=== PATIENT | male | born 1960 | race Caucasian/White ===

== ENCOUNTER 2025-05-10 21:11 | Emergency (ER) | payer OTHER, MEDICARE ==
[~2025-05-10] VITALS: Ht 193 cm; Wt 86.9 kg
[2025-05-10 21:15] VITALS: BP 126/78; PULSE 123; TEMP 97.8; O2SAT 100
--- NOTE | 2025-05-10 22:09 | Physician Documentation ---
History of Present Illness ~ Chief Complaint: Urinary Retention Stated Complaint: CANT GO TO THE BATHROOM Time Seen by MD: 21:34 OK to notify your PCP?: Yes Source: patient Mode of Arrival: POV Exam Limitations: no limitations HPI This is a 64-year-old male who comes in complaining of difficulty urinating. The patient has a history of BPH that has well as chronic back pain. He states that has happened in the past with the back pain gets bad he tenses up and can not urinate. He is able to ambulate. He denies pain radiating down the legs. He denies saddle paresthesias or loss of bowel control. He says that has times he has required a catheter however recently he ran out of his pain medication and believes the buildup of pain secondary to not having his medications that has caused his bowels of difficulty urinating. Last time he urinated was 4 hours ago. Medication Reconciliation Allergies: Coded Allergies: No Known Allergies (Unverified , 05/10/25) Physical Exam Vital Signs: Temperature: 97.8, Heart Rate: 123, Respiratory Rate: 16, BP: 126/78, Pulse Oximetry: 100, Weight: 86.900 Oxygen Flow Rate: 0 General Appearance: alert, WD/WN, mild distress Respiratory: no respiratory distress, respiratory distress Progress Results/Orders Results/Orders Completed Orders - MARTHA SMYTH Hydrocodone/Apap 10/325 ([place] 10/325mg (05/10/25 22:00) Medications Received in ER Medications (Trade) Dose Ordered Sig/Roro Route PRN Reason Start Time Stop Time Status Last Admin Dose Admin ([place] 10/325mg tab) 2 tab ONCE ONCE PO 05/10/25 22:00 05/10/25 22:01 DC 05/10/25 22:52 2 TAB Vital Signs 05/10/25 05/10/25 21:15 22:52 Temp 97.8 Pulse 123 Resp 16 18 B/P (MAP) 126/78 Pulse Ox 100 O2 Flow Rate 0 Medical Decision Making Additional information obtaine: N/A Findings After receiving the pain medication which was two tabs of 10/325 mg [place] the patient was able to fill up a urinalysis and states he feels much better. I am going to send the patient home with a small amount of [place] until he is able to get the prescription that has primary care physician sent to the pharmacy yesterday. I instructed him to return if he has any worsening or concerning symptoms. Urinary Diff Dx:Considerations: Include: AAA, Aortic dissection, Appendicitis, Appendicitis train, Bowel obstruction, Bladder outlet obstruc., Cholelithiasis, Choleangitis, Cholecystitis, DJD, Epididymitis, Hepatitis, HNP, Impaction, Musculoskeletal pain, Pancreatitis, Postoperative Comp., Prostatitis, Pyelon ephritis, Renal failure, Renal infarction, Strain, Urolithiasis, Urinary Obstruction, Urethritis, Urinary retention, UTI, Other Genital Diff Dx:Considerations: Include: Abscess, Balanitis, Balanoposthitis, Cellulitis, Epididymitis, Entrapment injury, Mary's gangrene, Foreign body, Facture penis, Hydrocele, Inguinal hernia, Post-op Complication, Paraphimosis, Prostatitis, Priapism, Syphilis, Testicular torsion, Torsion-epididymis, Torsion-appendiceal, Urinary retention, Urethritis, Urethritis-chlamydial, Urethritis-gonococcal, UTI, Other Additional Comment Urinary retention. BPH. Back pain. Doubt cauda equina syndrome Departure Disposition: HOME / SELF CARE / HOMELESS Impression: Primary Impression: Urinary retention Condition: Stable Discharge Instructions: Acute Urinary Retention, Male Additional Instructions: Take the medication as prescribed. Follow up with the primary care physician for recheck in the next one or two days and return to the ER for any worsening or concerning symptoms. Referrals: NO PRIMARY CARE PROVIDER (PCP) Prescriptions Baclofen (Baclofen) 20 Mg Tablet 1 TAB PO Q8H for Musculoskeletal pain, #20 TAB 0 Refills Prov: MARTHA SMYTH 05/11/25 Hydrocodone Bit/Acetaminophen (Hydrocodone-Apap 10-325 Tablet) 10mg/325mg T ablet 1 TABLET PO Q6H PRN for moderate or severe pain 4-10, #10 TABLET Prov: MARTHA SMYTH 05/11/25 Signature Scribe Signature: No scribe Attestation: The note accurately reflects work and decisions made by me.Martha BATISTA 05/11/25 00:16 MARTHA SMYTH May 10, 2025 22:08
[2025-05-10 22:52] VITALS: RESP 18
[2025-05-10] MEDS: HYDROcodone/acetaminophen 10/325mg tab PO ONE (22:52)
[2025-05-11] MEDS ORDERED: HYDR-3973 PO (00:15)
[2025-05-11] MEDS ORDERED: BACL20TA PO (00:15)
== END 2025-05-11 00:39 | disposition home or self-care (01) ==
LOC: ER 21:13
DX: R33.9 Retention of urine, unspecified (principal)
CPT/HCPCS: 99283

== ENCOUNTER 2025-05-14 19:07 | Emergency (ER) | payer OTHER, MEDICARE ==
[~2025-05-14] VITALS: Ht 198.1 cm; Wt 84.1 kg
[~2025-05-14 19:07] MED LIST: BACL20TA PO; HYDR-3973 PO
--- NOTE | 2025-05-14 19:37 | Physician Documentation ---
HPI ~ General Chief Complaint: Tooth Problem Stated Complaint: ABCESS TOOTH/ BACK PAIN Time Seen by MD: 19:36 OK to notify your PCP?: Yes Source: patient Mode of Arrival: POV Exam Limitations: no limitations History of Present Illness HPI Comment Presents for worsening right-sided lower dental pain. He reports he does not have an upcoming dental appointment. He is also complaining of having some chronic back pain. He currently has a pain contract and takes Hume 10/325 at home but is unable to pepper picker the prescription for the next couple of days so he has been unable to take it as frequently and believes his pain may have flared up. Since the dental pain is an acute issue, he is wondering if he can have Hume sent to his pharmacy that he can take instead of the 02/18/2025 that can help him with his tooth pain. Last dose of Hume 10 was yesterday. Denies any fevers, drainage from the tooth, nausea, vomiting or diarrhea. Medication Reconciliation Allergies: Coded Allergies: No Known Allergies (Unverified , 05/10/25) Scheduled Baclofen (Baclofen), 1 TAB PO Q8H Benzocaine* (Anbesol*), 1 APPLIC TP Q2H Clindamycin HCl (Clindamycin HCl), 1 CAP PO Q8H Scheduled PRN Hydrocodone Bit/Acetaminophen 5/325 MG (Hume 5/325 MG), 1 TAB PO TID PRN PRN for pain Hydrocodone Bit/Acetaminophen (Hydrocodone-Apap 10-325 Tablet), 1 TABLET PO Q6H PRN for moderate or severe pain 4-10 Review of Systems All Other Systems at this time: Reviewed and Negative Physical Exam Vital Signs: RN Vital Signs have been reviewed: Yes, Temperature: 98.0, Heart Rate: 98, Respiratory Rate: 18, BP: 136/93, Pulse Oximetry: 98, Weight: 84.090 Oxygen Flow Rate: 0 Pulse Oximetry Reflects: adequate oxygenation Physical Exam General: Alert, no distress. HEENT: No injection, moist mucous membranes. Slight facial swelling and tenderness to palpation of right lower jaw near tooth #31. There is erythema and pain at the gumline. No trismus Neck: Full range of motion. No cervical lymphadenopathy Respiratory: No respiratory distress, equal chest rise and fall. Chest: No accessory muscle use. Cardiovascular: Regular rate and rhythm. Gastrointestinal: Nondistended. Extremities: Normal range of motion, no deformity. Neurologic: Oriented x4. Psychiatric: Normal mood and affect. Skin: Normal color, warm and dry. Progress Results/Orders Reviewed/noted all lab results: Yes Results/Orders Completed Orders - CHEY MALHOTRA BATTERY STARTER Hydrocodone/Apap 10/325 (Hume 10/325mg (05/14/25 20:50) Clindamycin Capsule (Cleocin Capsule) (05/14/25 20:50) Medications Received in ER Medications (Trade) Dose Ordered Sig/Roro Route PRN Reason Start Time Stop Time Status Last Admin Dose Admin (Hume 10/325mg tab) 1 tab ONCE ONCE PO 05/14/25 20:50 05/14/25 21:01 DC 05/14/25 21:05 1 TAB (Cleocin capsule) 300 mg ONCE ONCE PO 05/14/25 20:50 05/14/25 21:01 DC 05/14/25 21:04 300 MG Vital Signs 05/14/25 05/14/25 05/14/25 19:27 21:05 21:07 Temp 98.0 98.0 Pulse 98 79 Resp 18 18 16 B/P (MAP) 136/93 133/75 Pulse Ox 98 97 O2 Flow Rate 0 Medical Decision Making Additional information obtaine: old records Findings Patient reports having dental infection if his lower right molar. This tooth on exam is in poor condition with multiple dental caries and there is erythema and redness at the gumline. He is having some edema into his right lower cheek as well. Prescribed clindamycin, benzocaine and Hume 5s. We discussed with the Hume 5s may not be filled as he is on a pain contract but seen this is is a different medication and for an acute issue such as his dental pain, the pharmacy may or may not fill this. Dose of Hume administered in the department for pain relief. Offered to do a dental nerve block instead but patient declined. Differential Dx:Considerations: Include: Alveolar fracture, Facial Cellulitis, Periapical abscess, Peridontal abscess, Post-extraction bleeding, Trigeminal neuralgia, Tooth subluxation Departure Disposition: HOME / SELF CARE / HOMELESS Impression: Primary Impression: Dental abscess Condition: Stable Discharge Instructions: Dental Abscess Additional Instructions: Please follow up with your dentist to have this tooth pulled. Return back here for any new or worsening symptoms. Take all antibiotics as prescribed. Referrals: NO PRIMARY CARE PROVIDER (PCP) Prescriptions Hydrocodone Bit/Acetaminophen 5/325 MG (Hume 5/325 MG) 5 Mg/325 Mg Tablet 1 TAB PO TID PRN PRN for pain for 5 Days, #15 TAB Prov: CHEY MALHOTRA 05/14/25 Benzocaine* (Anbesol*) 12 Ml Bottle 1 APPLIC TP Q2H for 3 Days, #1 EACH Prov: CHEY MALHOTRA 05/14/25 Clindamycin HCl (Clindamycin HCl) 300 Mg Capsule 1 CAP PO Q8H for 10 Days, #30 CAP Prov: CHEY MALHOTRA 05/14/25 Education Educated: Patient Educated regarding: diagnosis, treatment, prognosis, need for follow up Additional Comment Medical Screen Exam This patient recieved a medical screening examination. After reviewing the individual's medical complaints with presenting symptoms and performing an appropriate physical examination, it was determined that no immediate life- threatening emergency medical condition is present. This individual is also not a women having contractions. Signature Scribe Signature: . Attestation: Scribed for Chey Malhotra by Chey Norton NP . 05/14/25 20:05 CHEY MALHOTRA May 14, 2025 19:37
[2025-05-14] MEDS ORDERED: CLIN300C54 PO (20:01)
[2025-05-14] MEDS ORDERED: ANBESOL TP (20:02)
[2025-05-14] MEDS ORDERED: HYDR-3965 PO (20:04)
[2025-05-14] MEDS: HYDROcodone/acetaminophen 10/325mg tab PO ONE (21:05)
[2025-05-14 21:07] VITALS: BP 133/75; PULSE 79; RESP 16; TEMP 98; O2SAT 97
== END 2025-05-14 21:09 | disposition home or self-care (01) ==
LOC: ER 19:08
DX: K04.7 Periapical abscess without sinus (principal); G89.29 Other chronic pain; Z79.899 Other long term (current) drug therapy
CPT/HCPCS: 99283

== ENCOUNTER 2025-05-16 20:26 | Emergency (ER) | payer OTHER, MEDICARE ==
[~2025-05-16] VITALS: Ht 193 cm; Wt 84.0 kg
[~2025-05-16 20:26] MED LIST changes: +ANBESOL TP; +CLIN300C54 PO; +HYDR-3965 PO
[2025-05-16 20:49] VITALS: BP 145/92; PULSE 120; RESP 18; O2SAT 98
[2025-05-16] MEDS ORDERED: AMOX-580 PO (22:21)
--- NOTE | 2025-05-16 22:23 | Physician Documentation ---
HPI ~ General Chief Complaint: Tooth Problem Stated Complaint: TOOTH PAIN Time Seen by MD: 21:14 History of Present Illness HPI Comment 64-year-old male returns to the emergency department for re-evaluation of dental infection. Continues to have pain and swelling to the right upper jaw. Was placed on clindamycin which she states caused him a lot of GI upset along with the being no improvement in his facial swelling and pain. He has known poor dentition. No reported trismus and/or stridor. No reported fevers. His pain is well controlled with [place]. Medication Reconciliation Allergies: Coded Allergies: No Known Allergies (Unverified , 05/10/25) Scheduled Amox Tr/Potassium Clavulanate 875/125 MG (Augmentin 875/125 MG), 1 TAB PO BID Baclofen (Baclofen), 1 TAB PO Q8H Benzocaine* (Anbesol*), 1 APPLIC TP Q2H Clindamycin HCl (Clindamycin HCl), 1 CAP PO Q8H Scheduled PRN Hydrocodone Bit/Acetaminophen 5/325 MG ([place] 5/325 MG), 1 TAB PO TID PRN PRN for pain Hydrocodone Bit/Acetaminophen (Hydrocodone-Apap 10-325 Tablet), 1 TABLET PO Q6H PRN for moderate or severe pain 4-10 Review of Systems All Other Systems at this time: Reviewed and Negative ROS See HPI Physical Exam Vital Signs: RN Vital Signs have been reviewed: Yes, Temperature: 98.4, Source: Oral, Heart Rate: 120, Respiratory Rate: 18, BP: 145/92, Pulse Oximetry: 98, Weight: 84.000 Oxygen Flow Rate: 0 General Appearance: alert, WD/WN, moderate distress Mouth/Throat: dental tenderness, mandibular swelling; No: excessive drooling, pharynx swelling, pharynx tenderness Palate: normal inspection Teeth/Gums: missing teeth, gingiva redness, gingiva swelling Face: swelling Head: normal inspection Respiratory: no respiratory distress Chest: no accessory muscle use Cardiovascular: normal peripheral pulses Gastrointestinal: non-tender Skin: normal color Lymphatic: no adenopathy Progress Results/Orders Results/Orders Completed Orders - LILO PRAJAPATI PAC Hydrocodone/Apap 10/325 ([place] 10/325mg (05/16/25 22:25) Amox Tr/Potassium Clavulanate (Augmentin (05/16/25 22:25) Vital Signs 05/16/25 05/16/25 20:49 22:55 Temp 98.4 98.4 Pulse 120 Resp 18 B/P (MAP) 145/92 Pulse Ox 98 O2 Flow Rate 0 Medical Decision Making Additional information obtaine: old records Findings Examination history consistent with the facial sinuses cellulitis without obvious periodontal abscess secondary likely to that of odontogenic infection. We will have patient discontinued clindamycin due to his unfavorable GI upset and begin Augmentin. He is provided 1st dose of Augmentin and abortive pain management in the emergency department. Safely discharged without clinical suspicion of Seferino's angina, angioedema her obvious periodontal abscess. Recommendations are for close follow up and to return if forward to 72 hours if worse. Differential Dx:Considerations: Include: Alveolar fracture, Alveolar osteitis, ANUG, Facial Cellulitis, Periapical abscess, Peridontal abscess, Post-extraction bleeding, Pulpitis, Tooth avulsion, Tooth eruption, Tooth Fracture, Trigeminal neuralgia, Tooth subluxation, Other Departure Disposition: 01 HOME / SELF CARE / HOMELESS Impression: Primary Impression: Dental abscess Additional Impression: Dental caries Condition: Stable Discharge Instructions: Dental Caries, Adult, Dental Abscess Additional Instructions: Please begin Augmentin and continue with the pain management as directed. Make follow up with a dentist for definitive management and to return to the emergency department 48-72 hours if worse. Thank you for visiting [facility] Emergency Department. Referrals: NO PRIMARY CARE PROVIDER (PCP) Prescriptions Amox Tr/Potassium Clavulanate 875/125 MG (Augmentin 875/125 MG) 875 Mg-125 Mg Tablet 1 TAB PO BID, #20 TAB Prov: LILO PRAJAPATI PAC 05/16/25 Education Educated: Patient Educated regarding: diagnosis, treatment, prognosis, need for follow up Signature Scribe Signature: . Attestation: . LILO PRAJAPATI PAC May 16, 2025 22:23
[2025-05-16] MEDS: amox tr/potassium clavulanate 875/125mg TAB PO ONE (22:42)
[2025-05-16] MEDS: HYDROcodone/acetaminophen 10/325mg tab PO ONE (22:44)
[2025-05-16 22:55] VITALS: TEMP 98.4
== END 2025-05-16 22:56 | disposition home or self-care (01) ==
LOC: ER 20:27
DX: K04.7 Periapical abscess without sinus (principal); K02.9 Dental caries, unspecified; Z79.899 Other long term (current) drug therapy
CPT/HCPCS: 99283

== ENCOUNTER 2025-05-18 01:45 | Emergency (ER) | payer OTHER, MEDICARE ==
[~2025-05-18] VITALS: Ht 193 cm; Wt 84.0 kg
[~2025-05-18 01:45] MED LIST changes: +AMOX-580 PO
--- NOTE | 2025-05-18 03:33 | Physician Documentation ---
HPI ~ General Chief Complaint: Medication Request Stated Complaint: BACK AND TOOTH PAIN Time Seen by MD: 03:31 Primary Medical Doctor: ingrid History of Present Illness HPI Comments Patient presents to the emergency room with continued dental pain. He was seen here last night for same complaint. He states he gets his pain medication filled in the morning that has asking for a tablet for pain. He reports that the swelling in his face seems to have improved. No fevers Medication Reconciliation Allergies: Coded Allergies: No Known Allergies (Unverified , 05/10/25) Scheduled Amox Tr/Potassium Clavulanate 875/125 MG (Augmentin 875/125 MG), 1 TAB PO BID Baclofen (Baclofen), 1 TAB PO Q8H Clindamycin HCl (Clindamycin HCl), 1 CAP PO Q8H Scheduled PRN Hydrocodone Bit/Acetaminophen 5/325 MG ([place] 5/325 MG), 1 TAB PO TID PRN PRN for pain Hydrocodone Bit/Acetaminophen (Hydrocodone-Apap 10-325 Tablet), 1 TABLET PO Q6H PRN for moderate or severe pain 4-10 Discontinued Medications Benzocaine* (Anbesol*), 1 APPLIC TP Q2H Discontinued Reason: Auto Discontinued Review of Systems ROS All review of systems negative except as per HPI Physical Exam Physical Exam Vital Signs: Temperature: 98.5, Heart Rate: 120, Respiratory Rate: 18, BP: 118/81, Pulse Oximetry: 98, Weight: 84.000 Oxygen Flow Rate: 0 Physical Exam General: Patient is awake, alert, oriented x4 in no acute distress Head: Normocephalic and atraumatic. Eyes: Conjunctival normal. EOMI. PERRL. ENT: Mucous membranes moist. Poor dentition. Mild swelling to right side of face. No abscess appreciated Neck: Supple, trachea is midline. Chest: Clear to auscultation bilaterally without rales, rhonchi, or wheezes. There is no accessory muscle use or retractions. Cardiac: RRR without murmurs, gallops, or rubs. Progress Results/Orders Results/Orders Orders - KEYUR ROONEY MD Hydrocodone/Apap 10/325 ([place] 10/325mg (05/18/25 03:40) Vital Signs 05/18/25 05/18/25 02:11 03:36 Temp 98.5 98.5 Pulse 120 120 Resp 18 14 B/P (MAP) 118/81 135/81 (99) Pulse Ox 98 97 O2 Flow Rate 0 0 Medical Decision Making Additional information obtaine: old records Findings Patient presents to the emergency room requesting pain medication. I will give him one tablet of pain medication here tonight and he is to follow up tomorrow to get the rest of his pain medications. He had not feel additional labs or imaging is necessary as patient states his face seems to be getting better Differential Dx:Considerations: Include: Adverse circumstances, Economic, Psychosocial, Medical services unavail., Medication refill, Medication non- compliance, Other Departure Disposition: HOME / SELF CARE / HOMELESS Impression: Primary Impression: Pain, dental Condition: Stable Discharge Instructions: Dental Pain Referrals: NO PRIMARY CARE PROVIDER (PCP) Signature Scribe Signature: No scribe Attestation: The note accurately reflects work and decisions made by me.Keyur Rooney MD 05/18/25 03:43 KEYUR ROONEY MD May 18, 2025 03:33
[2025-05-18] MEDS: HYDROcodone/acetaminophen 10/325mg tab PO ONE (03:47)
[2025-05-18 04:01] VITALS: BP 135/81; PULSE 110; RESP 14; TEMP 98.5; O2SAT 99
== END 2025-05-18 04:06 | disposition home or self-care (01) ==
LOC: ER 01:45
DX: K08.89 Other specified disorders of teeth and supporting structures (principal); Z79.899 Other long term (current) drug therapy
CPT/HCPCS: 99283